=== PATIENT | female | born 1995 | race Caucasian/White ===

== ENCOUNTER → 2019-10-08 16:40 | Outpatient (CLI) | payer OTHER, SELFPAY ==
--- NOTE | 2019-10-08 16:46 | RAD_ITS ---
STUDY: X-RAY - RIGHT HAND REASON FOR EXAM: Female, 23 years old. punched a wall today, pain and swelling TECHNIQUE: 4 view(s) of the hand. COMPARISON: None. FINDINGS: Normal radiocarpal articulation. Normal distal radioulnar joint. Normal visualized carpal bones. Normal carpal articulations Normal carpometacarpal articulation of the thumb. Normal second through fifth carpometacarpal joints. Normal metacarpi. Normal metacarpophalangeal joint of the thumb. Normal interphalangeal joint of the thumb. Normal proximal and distal phalanges of the thumb. Normal metacarpophalangeal joints of the second through fifth fingers. Normal proximal and distal interphalangeal joints of the second through fifth fingers. Normal phalanges of the second through fifth fingers. Marked soft tissue swelling. RAD/Hand Min 3 Views IMPRESSION: Marked soft tissue swelling without underlying fracture or dislocation. Electronically Signed: Niecy Johnson MD at 17:37 EDT , Service support ,
== END ==
PROVIDERS: PCP Family Medicine; Referring Provider Family Medicine; Visit Provider Family Medicine
DX: S60.221A Contusion of right hand, initial encounter (principal)
CPT/HCPCS: 73130

== ENCOUNTER → 2020-01-08 13:21 | Outpatient (CLI) | payer OTHER, SELFPAY | PROVIDERS: PCP Family Medicine; Visit Provider Family Medicine | DX: R05 Cough (principal) | CPT/HCPCS: 87635; U0003 ==

== ENCOUNTER 2020-08-18 09:19 | Emergency (ER) | payer OTHER, SELFPAY ==
[2020-08-18 09:20] VITALS: BP 145/92; PULSE 83; RESP 18; TEMP 36.6; O2SAT 98; BMI 33.3
--- NOTE | 2020-08-18 09:34 | RAD_ITS ---
STUDY: X-RAY - RIGHT FOOT CLINICAL: Female, 24 years old. Injury/Pain of the great toe. TECHNIQUE: 3 view(s) of the foot. COMPARISON: None. FINDINGS: Normal talus, calcaneus, and tarsal bones. Normal visualized subtalar, talonavicular, calcaneocuboid, tarsal and tarsometatarsal articulations. Normal metatarsi. Normal metatarsophalangeal joint of the great toe. Normal tibial and fibular sesamoid bones. Normal interphalangeal joint of the great toe. Nondisplaced vertical fracture at the base of the distal phalanx of the great toe. Nondisplaced comminuted fracture of the mid and distal portion of the proximal phalanx of the great toe. The fracture line extends to the articular surface. Normal second through fifth metatarsophalangeal joints. Normal interphalangeal joints and phalanges of the lesser toes. Overlying soft tissue swelling. RAD/Foot min 3 Views IMPRESSION: Nondisplaced vertical fracture at the base of the distal phalanx of the great toe as well as a nondisplaced comminuted fracture of the mid and distal portion of the proximal segment of the great toe with overlying soft tissue swelling. Electronically Signed: Jeremi Fletcher MD at 10:30 EDT , Service support ,
--- NOTE | 2020-08-18 09:36 | ED.VIS.LOWEX ---
HPI History of Present Illness Chief Complaint: Laceration Informant: patient Occured/Mechanism Mechanism/Context: Yes work related Narrative Narrative: Patient is a 24-year-old female denies any sniffing past medical history presenting with injury to her right great toe. Patient was at work when she opened up a wooden gate and the gate fell for hinges landing on her great toe. She was wearing sandals. She sustained a laceration to patella. She came in for further evaluation. She has no other complaints at this time. She denies associated numbness or tingling. Tetanus Immunization: Unknown [facility] Medical History (Updated 08/18/20 @ 18:[address] Ginger Dailey DO) Anxiety Home Medications amoxicillin-pot clavulanate [Augmentin] 1 tab PO Q12H #20 tab 08/18/20 [Rx Last Taken Unknown] buspirone 5 mg PO DAILY 08/18/20 [History Last Taken Unknown] hydrocodone-acetaminophen 1 tab PO Q6H PRN 3 Days #12 tab 08/18/20 [Rx Last Taken Unknown] Allergy/AdvReac Type Severity Reaction Status Date / Time hydrogen peroxide Allergy Hives Verified 08/18/20 09:24 Social History Smoking Status: Never smoker ROS ROS ED Constitutional Constitutional ED: Denies fever(s) or subjective ENT ENT ED: Denies ear pain or rhinorrhea Cardiovascular Cardiovascular: Denies chest pain Respiratory/Chest Respiratory/Chest: Denies dyspnea Musculoskeletal Musculoskeletal: Reports other Details: Right great toe pain ; Denies myalgias Integumentary Reports other Details: Wound?right great toe Neurologic Neurologic: Denies paresthesias or weakness EXAM Physical Exam Const Vital Signs: 08/18/20 09:20 08/18/20 14:16 Temperature 97.9 F Temperature Source Temporal Pulse Rate 83 82 Respiratory Rate 18 15 Blood Pressure 145/92 H Blood Pressure Mean 109 Pulse Ox 98 98 Positive well nourished and well developed General Appearance ED: well developed HEENT normocephalic and atraumatic Eyes PERRL Neck full ROM Chest Wall inspection of chest normal Resp normal respiratory effort Cardio regular rate Cardio Narrative: Brisk capillary refill, 2+ bilateral DP pulses Extremity full ROM Extremity Narrative: Laceration to the top of the right great toe but no bony deformity noted. Range of motion of the foot and toes intact. Neuro no sensory deficits noted Sensorium / Orientation: alert Motor Exam: strength 5/5 throughout Psych mental status grossly normal Skin Skin Narrative: 3cm full-thickness laceration across the dorsal aspect of the right great toe over the proximal phalanges. No involvement of the nailbed. Exposure of the tendon sheath is noted. MDM MDM MDM Narrative Medical decision making narrative: Patient is evaluated for injury to her right great toe. X-ray obtained shows nondisplaced fracture of the proximal and distal phalanx. X-ray interpreted by myself as well as radiology. Patient initially declining pain medication in bed agreed to Motrin. Suture repair performed for complex laceration. See procedure note. Because she has associated fracture did discuss with podiatry on-call, Dr. Franco, who recommended Augmentin and follow-up as well as a postop shoe. She is weightbearing as tolerated. Patient is agreeable with this plan of care. She is given a short course of Otto as well for pain control. Workmen's Compensation paperwork is filed. Patient is counseled that she should not submerge her foot or go swimming until she is cleared by podiatry. Radiography Diagnostic Testing: Radiology Impression Foot X-Ray 08/18/20 09:34 IMPRESSION: Nondisplaced vertical fracture at the base of the distal phalanx of the great toe as well as a nondisplaced comminuted fracture of the mid and distal portion of the proximal segment of the great toe with overlying soft tissue swelling. Electronically Signed: Jeremi Fletcher MD at 10:30 EDT , Service support , Procedures Lacerations right great toe: Length: 1.18 in Depth: Sub Q Shape: Linear Prep: Sterile Conditions and Chlorhexadine Laceration repair: Digital block, Irrigated, Lidocaine, Skin sutures (2 horizontal matress, 3 simple ) and Subcutaneous sutures (2) Irrigated (ml): 999 Number of Sutures/Thea: 5 Suture Information: Ethilon and 4-0 Discharge Plan Triage Chief Complaint: Laceration ED Provider: Ginger Dailey Dx/Rx/DC Orders Clinical Impression: Laceration of great toe of right foot, Open fracture of phalanx of right great toe Instructions: ED Laceration, Foot: All Closures Prescriptions: New amoxicillin-pot clavulanate [Augmentin] 875-125 mg tablet 1 tab PO Q12H Qty: 20 RF: 0 hydrocodone-acetaminophen 5-325 mg tablet 1 tab PO Q6H PRN (Reason: pain) 3 Days Qty: 12 RF: 0 No Action buspirone 5 mg tablet 5 mg PO DAILY RF: 0 Primary Care Provider: Casandra Lai Referrals: Casandra Lai MD [Primary Care Provider] - Laurie Franco DPM [STAFF PHYSICIAN] - Activity Restrictions/Additional Instructions: Do not swim. You may also take ibuprofen as needed for pain. You can walk on it as comfortable for you. Please keep covered, clean and dry. It is okay for you to days but try not to let any dirty water run on the wound until it has closed up. Disposition Disposition: Home, self care Discharge Date/Time: 08/18/20 14:23
[2020-08-18] MEDS: Diphth,Pertuss(Acell),Tet Vac 0.5 ML Vial IM (10:07)
[2020-08-18] MEDS: Ibuprofen 600 MG Tablet PO (10:08)
[2020-08-18] MEDS: Lidocaine 1% (20 ml mdv) 20 ML Vial INFILT (14:15)
[2020-08-18 14:16] VITALS: PULSE 82; RESP 15; O2SAT 98
== END 2020-08-18 14:23 | disposition home or self-care (01) ==
PROVIDERS: Emergency Provider Emergency Medicine; PCP Family Medicine
DX: S91.311A Laceration without foreign body, right foot, initial encounter (principal); S92.401B Displaced unspecified fracture of right great toe, initial encounter for open fracture; W20.8XXA Other cause of strike by thrown, projected or falling object, initial encounter; Y93.89 Activity, other specified; Y92.89 Other specified places as the place of occurrence of the external cause; Y99.9 Unspecified external cause status; F41.9 Anxiety disorder, unspecified; Z23 Encounter for immunization
CPT/HCPCS: 12001; 73630; 90715; 99284